=== PATIENT | male | born 1965 | race Caucasian/White ===

== ENCOUNTER 2016-10-31 13:35 | Emergency (ER) | payer SELFPAY ==
[~2016-10-31] VITALS: Ht 170.2 cm; Wt 102.0 kg
[2016-10-31 13:44] VITALS: BP 169/72; PULSE 97; RESP 16; TEMP 97.3; O2SAT 96
[2016-10-31 13:48] VITALS: BP 169/72; PULSE 86; RESP 16; O2SAT 96
[2016-10-31] MEDS ORDERED: PRIL20CA9 PO (13:53)
[2016-10-31] MEDS ORDERED: ALLO100T PO (13:53)
[2016-10-31] MEDS ORDERED: ATOR20TA15 PO (13:53)
[2016-10-31] MEDS ORDERED: DIPHTH/TETANUS/ACEL PERTUSSIS (BOOSTER) 0.5 ML VIAL/PFS IM ONE (14:00)
[2016-10-31] MEDS ORDERED: SODIUM CHLORIDE 0.9% FLUSH 10 ML FLUSH IVF PRN (14:00)
[2016-10-31] MEDS ORDERED: MORPHINE SULFATE 4 MG/ML INJ IV PUSH ONE (14:15)
[2016-10-31] MEDS ORDERED: ONDANSETRON HCL 4 MG/2 ML VIAL IV PUSH ONE (14:15)
[2016-10-31 14:39] LABS: AUTOMATED NEUTROPHIL # 14.5 TH/MM3 (1.8-7.7); BASOPHIL % 0.3 % (0.0-2.0); EOSINOPHIL # 0.1 TH/MM3 (0-0.4); EOSINOPHIL % 0.3 % (0.0-4.0); HEMATOCRIT 45.3 % (39.0-51.0); HEMO FLAGS DIFF FINAL; LYMPH % 6.2 % (9.0-44.0); MEAN CELL VOLUME 86.4 FL (80.0-100.0); MEAN CORPUSCULAR HEMOGLOBIN 29.7 PG (27.0-34.0); MEAN CORPUSCULAR HGB CONC 34.3 % (32.0-36.0); MONO % 5.9 % (0.0-8.0); NEUT % 87.3 % (16.0-70.0); PLATELET COUNT 218 TH/MM3 (150-450); RED BLOOD COUNT 5.24 MIL/MM3 (4.50-5.90); RED CELL DISTRIBUTION WIDTH 14.5 % (11.6-17.2); WHITE BLOOD COUNT 16.6 TH/MM3 (4.0-11.0)
--- NOTE | 2016-10-31 14:44 | PD ---
HPI . 20 foot fall Chief Complaint: Fall Time Seen by Provider: 13:57 Travel History International Travel<30 days: No Contact w/Intl Traveler<30days: No Traveled to known affect area: No History of Present Illness HPI Patient presents to us via [facility] following a 20 foot fall out of a tree. He states he landed flat on his back. He believes that he did suffer a loss of consciousness. He states that, when he came to, he checked his CT if he can feel everything and move everything. He states that he could so he felt like he was probably okay. The fall was witnessed and bystanders who called EMS. He states that the bulk of his pain is in his back. He states that he was working up in the tree without a shirt on. He does not know the date of his last tetanus shot. He describes his pain as mild. The injury occurred just prior to arrival. PFSH Past Medical History GERD: Yes Hiatal Hernia: Yes (UMBILICAL) Hypertension: Yes Tetanus Vaccination: Unknown Influenza Vaccination: Yes Past Surgical History Abdominal Surgery: Yes (UMBILICAL HERNIA) Social History Alcohol Use: No Tobacco Use: No Substance Use: Yes (MARIJUANA) Allergies-Medications (Allergen,Severity, Reaction): Coded Allergies: No Known Allergies (Unverified , 10/31/16) Reported Meds & Prescriptions Reported Meds & Active Scripts Active [place] (Hydrocodone-Acetaminophen) 5-325 mg Tab 1 Tab PO Q4H PRN Ibuprofen 800 Mg Tab 800 Mg PO Q8H PRN Reported Atorvastatin (Atorvastatin Calcium) 20 Mg Tab 20 Mg PO HS Allopurinol 100 Mg Tab 150 Mg PO DAILY Prilosec (Omeprazole) 20 Mg Cap 20 Mg PO DAILY Review of Systems Except as stated in HPI: all other systems reviewed are Neg Cardiovascular: No: Chest Pain or Discomfort Respiratory: No: Shortness of Breath Gastrointestinal: No: Nausea, Vomiting, Diarrhea Genitourinary: No: Urgency, Frequency, Dysuria Musculoskeletal: Positive: Pain (back pain) Skin: Positive Other (some abrasions) Neurologic: Positive: Syncope, No: Weakness, Dizziness, Focal Abnormalities, Paresthesia, Incontinence Physical Exam Narrative PRIMARY SURVEY: Airway --patient is talking in no airway difficulty Breathing--lungs have good air movement bilaterally Circulation--normal capillary refill and distal pulses. Patient is not hypotensive. Disability--patient is moving all 4 extremities equally --GCS--15 --Pupils--equally round and reactive to light --Lateralizing signs--no lateralizing signs Exposure--patient has been completely exposed for examination PRIMARY SURVEY ADJUNCTS ---CXR--not done --- Pelvic x-ray--not done ---FAST exam--no evidence of blood in the belly and no evidence of pericardial effusion ---monitors--patient is on appropriate monitors. IV access has been obtained prior to arrival. ---Grimaldo--not needed RESUSCITATION A--none known M--allopurinol, Prilosec and a statin P--hypertension, hyperlipidemia, GERD L--last night E--he was trying to cut a limb out of a tree and inadvertently fell 20 feet SECONDARY SURVEY General: Awake and alert and in no acute distress. Skin: Several superficial abrasions on the trunk and right shoulder. HEENT: Normocephalic, atraumatic. Neck: He does have some diffuse tenderness to palpation of the posterior neck. Heart: Heart sounds are normal. He is not tachycardic. Regular rate and rhythm. Lungs: Good air movement throughout. Abdomen: Bowel sounds present. Soft and nontender throughout. Back: Scattered bruising diffusely across the back. Extremities: He is moving all 4 extremities without difficulty. There is no deformity. There is no significant bruising or swelling of any of his extremities. DIAGNOSTIC STUDIES: CT of his head, neck, chest, abdomen/pelvis have been ordered MANAGEMENT: Tetanus has been updated. He has been given morphine and Zofran for pain management. Data Data Last Documented VS Vital Signs Date Time Temp Pulse Resp B/P Pulse Ox O2 Delivery O2 Flow Rate FiO2 10/31/16 16:21 83 16 135/72 96 Room Air 10/31/16 13:44 97.3 Orders I-Stat Profile (10/31/16 13:57) I-Stat Creatinine (10/31/16 13:57) Complete Blood Count With Diff (10/31/16 13:57) Urinalysis - C+S If Indicated (10/31/16 13:57) Ct Brain W/O Iv Contrast(Rout) (10/31/16 13:57) Ct Cerv Spine W/O Contrast (10/31/16 13:57) Ct Abd/Pel W Iv Contrast(Rout) (10/31/16 13:57) Ct Thorax/ Chest W Iv Contrast (10/31/16 13:57) Iv Access Insert/Monitor (10/31/16 13:57) Ecg Monitoring (10/31/16 13:57) Oximetry (10/31/16 13:57) Oxygen Administration (10/31/16 13:57) Kwfu-Mvu-Onyues (Booster) Inj (Boostrix (10/31/16 14:00) Sodium Chloride 0.9% Flush (Ns Flush) (10/31/16 14:00) Ondansetron Inj (Zofran Inj) (10/31/16 14:15) Morphine Inj (Morphine Inj) (10/31/16 14:15) Ed Poc Ultrasound (10/31/16 14:02) Iohexol 350 Inj (Omnipaque 350 Inj) (10/31/16 15:39) Labs Laboratory Tests Test 10/31/16 10/31/16 10/31/16 14:20 14:30 15:17 White Blood Count 16.6 TH/MM3 Red Blood Count 5.24 MIL/MM3 Hemoglobin 15.5 GM/DL Hematocrit 45.3 % Mean Corpuscular Volume 86.4 FL Mean Corpuscular Hemoglobin 29.7 PG Mean Corpuscular Hemoglobin 34.3 % Concent Red Cell Distribution Width 14.5 % Platelet Count 218 TH/MM3 Mean Platelet Volume 11.2 FL Neutrophils (%) (Auto) 87.3 % Lymphocytes (%) (Auto) 6.2 % Monocytes (%) (Auto) 5.9 % Eosinophils (%) (Auto) 0.3 % Basophils (%) (Auto) 0.3 % Neutrophils # (Auto) 14.5 TH/MM3 Lymphocytes # (Auto) 1.0 TH/MM3 Monocytes # (Auto) 1.0 TH/MM3 Eosinophils # (Auto) 0.1 TH/MM3 Basophils # (Auto) 0.0 TH/MM3 CBC Comment DIFF FINAL Differential Comment Bedside Hemoglobin 16.0 G/DL Bedside Hematocrit 47.0 % Bedside Sodium 143 MMOL/L Bedside Potassium 4.0 MMOL/L Bedside Chloride 107 MMOL/L Bedside Blood Urea Nitrogen 26 MG/DL Bedside Creatinine 1.2 MG/DL Bedside Glucose 122 MG/DL Urine Color YELLOW Urine Turbidity CLEAR Urine pH 5.5 Urine Specific [place] 1.016 Urine Protein 30 mg/dL Urine Glucose (UA) NEG mg/dL Urine Ketones NEG mg/dL Urine Occult Blood NEG Urine Nitrite NEG Urine Bilirubin NEG Urine Urobilinogen LESS THAN 2.0 MG/DL Urine Leukocyte Esterase NEG Urine RBC 1 /hpf Urine WBC 2 /hpf Urine Hyaline Casts 8 /lpf Urine Mucus FEW /lpf Microscopic Urinalysis Comment CULT NOT INDICATED MDM Medical Decision Making Medical Screen Exam Complete: Yes Emergency Medical Condition: Yes Differential Diagnosis Differential diagnosis includes but is not limited to pneumothorax, hemothorax, ruptured aorta, ruptured spleen, liver laceration, bowel injury, kidney injury Narrative Course Patient presents for evaluation of injury sustained in a 20 foot fall. He has no obvious signs of injury on examination with the exception of some superficial abrasions on his anterior trunk and some bruising on his back CBC Diagram 10/31/16 14:20 Chemistries were done POC. They are unremarkable. UA does not show blood. Last Impressions Head CT 10/31/16 1627 Signed Impressions: Service Date/Time: Monday, October 31, 2016 15:26 - CONCLUSION: Negative for acute process.. Brendan Porter MD FACR Abdomen/Pelvis CT 10/31/16 3827 Signed Impressions: Service Date/Time: Monday, October 31, 2016 15:33 - CONCLUSION: 1. Incidental 9 mm left adrenal adenoma. 2. No findings to indicate acute intra-abdominal trauma identified. 3. No acute fracture is seen. Tejinder Porter MD CT C-spine Degenerative changes as described above without fracture. Verbal report of the CT of the chest is that it is negative. Procedures Procedure Narrative Emergency department E-FAST was performed with patient consent. The curvilinear probe was used in the right upper quadrant/Morison's pouch, suprapubic, left upper quadrant/spleenorenal space, epigastric, parasternal long axis and anterior bilateral chest wall. There was no evidence of peritoneal free fluid, pericardial effusion, or pneumothorax. Diagnosis Primary Impression: Fall Qualified Code: W19.XXXA - Fall, initial encounter Additional Impressions: Back contusion Qualified Code: S20.229A - Back contusion, unspecified laterality, initial encounter Abrasions of multiple sites Scripts Hydrocodone-Acetaminophen ([place])5-325 mg Tab1 Tab PO Q4H PRN (PAIN) #30 TAB Ref 0 Prov:Oeters,Angie Davie MD 10/31/16 Ibuprofen 800 Mg [id number] Mg PO Q8H PRN (pain) #15 TAB Ref 0 Prov:Angie Alexander MD 10/31/16 Disposition: 01 DISCHARGE HOME Condition: Stable Angie Alexander MD Oct 31, 2016 14:44
[2016-10-31 15:31] LABS: BLOOD, URINE NEG (NEG); COMMENT (UR) CULT NOT INDICATED; CULTURE IF INDICATED CULT NOT INDICATED; GLUCOSE,URINE NEG (NEG); HYALINE CAST, URINE 8 /lpf (RARE); KETONE, URINE NEG (NEG); MUCUS URINE FEW /lpf (OCC); NITRITE,URINE NEG (NEG); PH, URINE 5.5 (5.0-8.5); URINE COLOR YELLOW (YELLW/STRAW)
[2016-10-31] MEDS ORDERED: IOHEXOL 350 MG/ML 10 ML VIAL (for RAD DIAG) IV ONE (15:39)
--- NOTE | 2016-10-31 15:41 | RADRPT ---
EXAM DATE/TIME: 10/31/2016 15:26 [facility] COMPARISON: No previous studies available for comparison. INDICATIONS : Fall from tree; generalized malaise. RADIATION DOSE: 56.89 CTDIvol (mGy) MEDICAL HISTORY : Hypertension. Hernia. SURGICAL HISTORY : Right shoulder surgery. ENCOUNTER: Initial ACUITY: 1 day PAIN SCALE: 5/10 LOCATION: cranial TECHNIQUE: Multiple contiguous axial images were obtained of the head. Using automated exposure control and adj ustment of the mA and/or kV according to patient size, radiation dose was kept as low as reasonably a chievable to obtain optimal diagnostic quality images. FINDINGS: CEREBRUM: The ventricles are normal for age. No evidence of midline shift, mass lesion, hemorrhage or acute in farction. No extra-axial fluid collections are seen. POSTERIOR FOSSA: The cerebellum and brainstem are intact. The 4th ventricle is midline. The cerebellopontine angle i s unremarkable. EXTRACRANIAL: The visualized portion of the orbits is intact. SKULL: The calvaria is intact. No evidence of skull fracture. CONCLUSION: Negative for acute process.. Brendan Porter MD FACR on October 31, 2016 at 15:38 Board Certified Radiologist. This report was verified electronically.
--- NOTE | 2016-10-31 15:53 | RADRPT ---
EXAM DATE/TIME: 10/31/2016 15:26 [facility] COMPARISON: No previous studies available for comparison. INDICATIONS : Fall from tree; generalized malaise. RADIATION DOSE: 24.56 CTDIvol (mGy) MEDICAL HISTORY : Hypertension. Hernia. SURGICAL HISTORY : Right shoulder surgery. ENCOUNTER: Initial ACUITY: 1 day PAIN SCALE: 7/10 LOCATION: Neck TECHNIQUE: Volumetric scanning of the cervical spine was performed. Multiplanar reconstructions i n the sagittal, coronal and oblique axial planes were performed. Using automated exposure control a nd adjustment of the mA and/or kV according to patient size, radiation dose was kept as low as reason ably achievable to obtain optimal diagnostic quality images. FINDINGS: Scans were obtained from the skull base to T1. C1 and C2 are intact. C2-C3: The bony spinal canal is normal in size. No evidence of disc bulge or herniation. The neura l foramina are bilaterally patent. C3-C4: The bony spinal canal is normal in size. No evidence of disc bulge or herniation. The neura l foramina are bilaterally patent. C4-C5: Mild uncinate ridging is present with minimal right-sided neural foraminal encroachment. C5-C6: Mild uncinate ridging is present with bilateral neural foraminal encroachment. C6-C7: Moderate uncinate ridging is present with mild bilateral neural foraminal encroachment . C7-T1: The bony spinal canal is normal in size. No evidence of disc bulge or herniation. The neura l foramina are bilaterally patent. CONCLUSION: Degenerative changes as described above without fracture. Brendan Porter MD FACR on October 31, 2016 at 15:47 Board Certified Radiologist. This report was verified electronically.
[2016-10-31 16:21] VITALS: BP 135/72; PULSE 83; RESP 16; O2SAT 96
--- NOTE | 2016-10-31 16:32 | RADRPT ---
EXAM DATE/TIME: 10/31/2016 15:33 [facility] COMPARISON: CT CERVICAL SPINE W/O CONTRAST, October 31, 2016, 15:26. INDICATIONS : Fall from tree; generalized malaise. IV CONTRAST: 92 cc Omnipaque 350 (iohexol) IV ; Cumulative dose for multiple exams. ORAL CONTRAST: No oral contrast ingested. RADIATION DOSE: 20.33 CTDIvol (mGy) ; Combined studies - Thorax/Abdomen/Pelvis MEDICAL HISTORY : Hypertension. Hernia. SURGICAL HISTORY : Right shoulder surgery. ENCOUNTER: Initial ACUITY: 1 day PAIN SCALE: 6/10 LOCATION: Abdomen/pelvis TECHNIQUE: Volumetric scanning of the abdomen and pelvis was performed. Using automated exposure control and ad justment of the mA and/or kV according to patient size, radiation dose was kept as low as reasonably achievable to obtain optimal diagnostic quality images. FINDINGS: There are COPD changes within the lung bases. The heart is normal in size. There is atherosclerotic plaquing and coronary arteries. The appearance of the liver, spleen, pancreas, right adrenal gland and kidneys is within normal limit s. Note is made of a 9 mm low attenuation lesion in the left adrenal most consistent with benign ayush grace. There is no free intraperitoneal air. No free intraperitoneal fluid is identified. There is no retrop eritoneal lymphadenopathy. The aorta is normal in caliber. The visualized loops of small and large bowel the upper abdomen are unremarkable. The anterior abdomi nal wall is intact. There is no free fluid within the pelvis. No iliac or inguinal adenopathy is seen. Note is made of sm all bilateral inguinal hernias. Bone windowed imaging is provided. These demonstrate degenerative changes within the lower thoracic a nd lumbar spine. No acute fracture is seen. CONCLUSION: 1. Incidental 9 mm left adrenal adenoma. 2. No findings to indicate acute intra-abdominal trauma identified. 3. No acute fracture is seen. Tejinder Porter MD on October 31, 2016 at 16:27 Board Certified Radiologist. This report was verified electronically.
[2016-10-31] MEDS ORDERED: IBUP800T23 PO (17:00)
[2016-10-31] MEDS ORDERED: NORC5TAB PO (17:00)
--- NOTE | 2016-10-31 17:35 | RADRPT ---
EXAM DATE/TIME: 10/31/2016 15:33 [facility] COMPARISON: No previous studies available for comparison. INDICATIONS : Fall from tree; generalized malaise. IV CONTRAST: 92 cc Omnipaque 350 (iohexol) IV ; Cumulative dose for multiple exams. RADIATION DOSE: 20.33 CTDIvol (mGy) ; Combined studies - Thorax/Abdomen/Pelvis MEDICAL HISTORY : Hypertension. Hernia. SURGICAL HISTORY : Right shoulder surgery. ENCOUNTER: Initial ACUITY: 1 day PAIN SCALE: 4/10 LOCATION: Chest TECHNIQUE: Volumetric scanning of the chest was performed. Using automated exposure control and adjustment of t he mA and/or kV according to patient size, radiation dose was kept as low as reasonably achievable to obtain optimal diagnostic quality images. FINDINGS: There is no pneumothorax. Mediastinum is intact. Moderate coronary artery calcifications are noted particularly in the LAD There is no pericardial ef fusion. Review of bone windows reveals degenerative changes in the thoracic spine without fracture. CONCLUSION: Negative CT scan of the chest for acute traumatic injury. Brendan Porter MD FACR on October 31, 2016 at 15:53 Board Certified Radiologist. This report was verified electronically.
== END 2016-10-31 17:54 | disposition home or self-care (01) ==
LOC: NEPC 13:35
DX: S20.229A Contusion of unspecified back wall of thorax, initial encounter (principal); S40.211A Abrasion of right shoulder, initial encounter; S20.319A Abrasion of unspecified front wall of thorax, initial encounter; M54.2 Cervicalgia; I10 Essential (primary) hypertension; Z23 Encounter for immunization; Z87.19 Personal history of other diseases of the digestive system; W14.XXXA Fall from tree, initial encounter; Y99.0 Civilian activity done for income or pay
CPT/HCPCS: 70450; 71260; 72125; 74177; 81001; 82435; 82565; 82947; 84132; 84295; 84520; 85025; 90471; 90715; 96374; 96375; 99284; J2270; J2405; Q9967